=== PATIENT | female | born 1950 | race Caucasian/White ===

== ENCOUNTER → 2018-03-08 | Outpatient (CLI) | payer MEDICARE, OTHER ==
--- NOTE | 2018-03-10 07:17 | Diagnostic Imaging Report ---
TECHNIQUE: Magnetic resonance imaging of the LEFT KNEE was performed WITHOUT injected contrast. HISTORY: Knee pain, evaluate for internal arrangement COMPARISON: None available. FINDINGS: LIGAMENTS AND TENDONS: ACL: Intact PCL: Intact Collateral ligaments: Intact Iliotibial band: Unremarkable Popliteal tendon: Intact Extensor mechanism: Quadriceps tendinosis. JOINT: Menisci: Medial: Degenerative signal without discrete tear Lateral: Degenerative signal without discrete tear. Undersurface fraying of the posterior horn. Articular Cartilage: Medial Compartment: No focal defect. Lateral Compartment: No focal defect. Patellofemoral Compartment: Partial-thickness cartilage loss most prominent involving the medial patellar facet Joint Fluid: The amount of fluid within the joint is within physiologic limits. BONE: No focal or infiltrative bone marrow replacing abnormality. No acute fracture. SOFT TISSUES: Otherwise, unremarkable. IMPRESSION: Patellofemoral compartment predominant cartilage loss. Quadriceps tendinosis. Signed by: Dr. Vivek Ball M.D. on 03/10/2018 7:14 AM
== END ==
LOC: MRI 16:46
PROVIDERS: ATTEND Specialist
DX: M23.92 Unspecified internal derangement of left knee (principal)

== ENCOUNTER 2018-03-30 12:52 | Outpatient (RCR) | payer MEDICARE, OTHER | END 2018-04-17 | LOC: PT 12:52 | PROVIDERS: ATTEND Specialist | DX: M22.2X2 Patellofemoral disorders, left knee (principal) | CPT/HCPCS: 97110; 97162; G8978; G8979 ==